=== PATIENT | female | born 1990 ===

== ENCOUNTER 2024-04-11 10:06 | Outpatient (CLI) | payer BC, SELFPAY | END 2024-04-11 10:07 | disposition home or self-care (01) | LOC: NFLDREF 04-13 10:16 | PROVIDERS: Visit Provider Family Medicine | DX: R39.9 Unspecified symptoms and signs involving the genitourinary system (principal); N39.0 Urinary tract infection, site not specified | CPT/HCPCS: 87086; 87186 ==

== ENCOUNTER 2024-06-07 10:35 | Outpatient (CLI) | payer BC, SELFPAY | END 2024-06-07 10:36 | disposition home or self-care (01) | LOC: NFLDREF 06-09 10:35 | PROVIDERS: PCP Physician Assistant; Visit Provider Physician Assistant | DX: N39.0 Urinary tract infection, site not specified (principal) | CPT/HCPCS: 87086; 87186 ==